=== PATIENT | male | born 1965 | race Caucasian/White ===

== ENCOUNTER 2018-01-05 17:26 | Day surgery (SDC) | payer MEDICAID ==
[2018-01-05] MEDS ORDERED: BACITRACIN ZINC 14.2 GM OINTTUBE TP ONE (18:09)
[2018-01-05] MEDS ORDERED: BUPIVACAINE 0.5% 30 ML SDV ONE (18:09)
[2018-01-05] MEDS ORDERED: BUPIVACAINE 0.25% 30 ML SDV ONE (18:09)
[2018-01-05] MEDS ORDERED: ceFAZolin 2 GM/DEXTROSE 100 ML IV ONE (18:10)
[2018-01-05] MEDS ORDERED: MINERAL OIL 10 ML VIAL ONE (18:10)
[2018-01-05] MEDS ORDERED: fentaNYL 250 MCG/5 ML INJ ONE (18:14)
[2018-01-05] MEDS ORDERED: PROPOFOL/EMULSION 500 MG/50 ML BOTTLE IV ONE (18:17)
[2018-01-05] MEDS ORDERED: MIDAZOLAM 2 MG/2 ML VIAL ONE (18:23)
[2018-01-05] MEDS ORDERED: MIDAZOLAM 2 MG/2 ML VIAL IVP ONE (18:24)
--- NOTE | 2018-01-05 18:26 | PDANEPAE ---
ANE History of Present Illness 52 year old male for repair of penile fracture. +Methamphetamine use. ANE Past Medical History - Cardiovascular History Hx Hypertension: No Hx Arrhythmias: No Hx Chest Pain: No Hx Coronary Artery / Peripheral Vascular Disease: No Hx CHF / Valvular Disease: No Hx Palpitations: No - Pulmonary History Hx COPD: No Hx Asthma/Reactive Airway Disease: No Hx Recent Upper Respiratory Infection: No Hx Oxygen in Use at Home: No Hx Sleep Apnea: Yes - Neurologic History Hx Cerebrovascular Accident: No Hx Seizures: No Hx Dementia: No - Endocrine History Hx Diabetes: No - Renal History Hx Renal Disorders: Yes Renal History Comment: Has to self cath, has trouble peeing sometimes, recent UTI - Liver History Hx Hepatic Disorders: Yes Hepatic History Comment: Hep C hx, says its negative now - Neurological & Psychiatric Hx Neurological / Psychiatric History Comment: Anxiety - Cancer History Hx Cancer: No - Congenital Disorder History Hx Congenital Disorders: No - GI History Hx Gastrointestinal Disorders: No - Surgical History Prior Surgeries: Skin grafts taken from thigh to ankle ANE Review of Systems Review of Systems: - Exercise capacity METS (RN): 4 METS ANE Patient History - Allergies Allergies/Adverse Reactions: prochlorperazine [From Compazine] Allergy (Severe, Verified 01/05/18 18:00) Other-Enter Comments - NPO status NPO Since - Liquids (Date): 01/05/18 NPO Since - Liquids (Time): 14:00 NPO Since - Solids (Date): 01/05/18 NPO Since - Solids (Time): 14:00 - Smoking Hx Smoking Status: Current every day smoker ANE Labs/Vital Signs - Vital Signs Blood Pressure: 132/83 Heart Rate: 85 Respiratory Rate: 18 O2 Sat (%): 96 Height: 182.88 cm Weight: 81.647 kg ANE Physical Exam - Airway Neck exam: FROM Mallampati Score: Class 2 Mouth exam: dentures - Pulmonary Pulmonary: no respiratory distress - Cardiovascular Cardiovascular: regular rate and rhythym - ASA Status ASA Status: II ANE Anesthesia Plan Anesthesia Plan: general endotracheal anesthesia
[2018-01-05] MEDS ORDERED: ceFAZolin 2 GM/SWFI 2 GM/20 ML SYR IVP ONE (18:30)
[2018-01-05] MEDS ORDERED: ONDANSETRON 4 MG/2 ML VIAL IVP PRN (19:11)
[2018-01-05] MEDS ORDERED: LABETALOL HCL 5 MG/ML 20 ML MDV IVP PRN (19:11)
[2018-01-05] MEDS ORDERED: LR 500 ML IV PRN (19:11)
[2018-01-05] MEDS ORDERED: oxyCODONE IR 5 MG TAB PO PRN (19:11)
[2018-01-05] MEDS ORDERED: fentaNYL 100 MCG/2 ML INJ IVP PRN (19:11)
[2018-01-05] MEDS ORDERED: NALOXONE HCL 0.4 MG/ML INJ IVP PRN (19:11)
[2018-01-05] MEDS ORDERED: HYDROCODONE/APAP 5/325 TAB PO PRN (19:11)
[2018-01-05] MEDS ORDERED: ALBUTEROL 3 ML DEYVIAL IH PRN (19:11)
--- NOTE | 2018-01-05 19:52 | POSTOPPROG ---
Post Op Note Date of Operation: 01/05/18 Surgeon: Cori Traore (# [id number]) Anesthesia: GET(General Endotracheal) Pre-op Diagnosis: Penile fracture Post-op Diagnosis: Extensive subcutaneous penile hematoma Procedure: Penile exploration Findings: See op note Inf/Abcess present in the surg proc area at time of surgery?: No EBL: Minimal Complications: None Specimen(s): None
--- NOTE | 2018-01-05 20:21 | GOP ---
[f rep st] OPERATIVE REPORT DATE OF OPERATION: 01/05/2018 SURGEON: Cori Traore MD ANESTHESIA: General endotracheal. PREOPERATIVE DIAGNOSIS: Penile fracture. POSTOPERATIVE DIAGNOSIS: Extensive subcutaneous penile hematoma. PROCEDURE PERFORMED: Penile exploration under anesthesia. FINDINGS: No evidence of corporal penile fracture. There is extensive subcutaneous penile hematoma noted. SPECIMENS: None. ESTIMATED BLOOD LOSS: None. INDICATIONS: This gentleman presented to my office late this afternoon, with clinical history and ph ysical exam findings worrisome for the presence of a penile fracture. It was recommended the patient undergo intraoperative emergent management. The indications for the procedures, as well as potentia l risks and complications, were discussed with the patient preoperatively. He appeared to understand , his questions were answered, and he wished to proceed. Written informed surgical consent was there after obtained. DESCRIPTION OF PROCEDURE: Once the patient was brought to the operating room, he was administered ge neral endotracheal anesthesia. He was carefully placed in the supine position on the operating room table. The genital area was sterilely prepped with Betadine scrub and paint, and then draped in the usual sterile fashion. There was a significant ecchymosis and edema involving the entire penile shaf t, and now was extending down into the right posterior aspect of the scrotum to a small extent, just below the penoscrotal junction on this side. It appeared that the degree of ecchymosis and edema was worse than it was when examined in the office approximately 4 p.m. I used a scalpel to perform a ci rcumferential incision through the distal penile shaft, directly in line with the patient's prior cir cumcision incision. This was then carried down through the subcutaneous tissue with a combination of electrocautery and scissors. I continued my dissection down to Willoughby fascia. I continued along this plane more proximally, in a circumferential fashion, in order to fully degloved the penis. I contin ued my dissection until the pubic ramus was reached. The corporal bodies were carefully inspected. There was no obvious disruption to Willoughby fascia. There was no obvious injury to the corporal bodies a ppreciated. Urethra was also noted to be intact and without injury. I did ligate some superficial v asculature with electrocautery. Otherwise, the injury appeared to be relegated to the superficial ti ssue superficial to Willoughby fascia. There appeared to be extensive subcutaneous hematoma, but otherwise no injury to the deeper structures. Once hemostasis at this point was confirmed, I felt that the di ssection was sufficient, and the exploration complete at this point. I then began closure by reappro ximating the penile skin edges with running 4-0 chromic suture. Afterward, the wound was dressed wit h narrow Xeroform gauze circumferentially, a folded over 4 x 4 gauze sponge, and a light circumferent ial application of 2-inch Coban. A scrotal support was also placed on the patient in order to prop t he penis up against the lower abdomen. Prior to dressing the wound, a total of 10 cc of 0.25% Marcai ne without epinephrine was used to perform a penile block. After dressing application was completed, the patient was awakened, extubated, transferred to his bed, then taken to the recovery room. He to lerated the procedure well overall. COMPLICATIONS: None. DISPOSITION: He was transferred to the recovery room in stable condition. /[id number]/MODL
[2018-01-05 21:22] VITALS: BP 127/81
== END 2018-01-05 20:52 | disposition home or self-care (01) ==
LOC: FSGY 17:26
PROVIDERS: ATTEND Specialist
PROC: 0VJS0ZZ Inspection of Penis, Open Approach (ICD-10-PCS; principal; 2018-01-05 18:45)
DX: S30.21XA Contusion of penis, initial encounter (principal); Y93.89 Activity, other specified
CPT/HCPCS: J0690; J2250; J2704; J3010